=== PATIENT | female | born 1965 | race Caucasian/White ===

== ENCOUNTER 2021-05-14 09:36 | Outpatient (CLI) | payer BC | END 2021-05-14 09:37 | disposition home or self-care (01) | LOC: MRI 09:36 | PROVIDERS: ATTEND Orthopaedic Surgery | DX: M17.11 Unilateral primary osteoarthritis, right knee (principal); S83.241A Other tear of medial meniscus, current injury, right knee, initial encounter; S83.281A Other tear of lateral meniscus, current injury, right knee, initial encounter; M25.461 Effusion, right knee ==

== ENCOUNTER 2021-07-09 10:30 | Inpatient (IN) | payer BC ==
[2021-07-09 14:32] VITALS: BMI 35.8
[2021-07-10 16:53] LABS: #Eosinphils 0.1 10x3/uL (0.0-0.5); #Monocytes 0.7 10x3/uL (0.0-1.1); #Neutrophils 5.1 10x3/uL (1.5-8.4); %Basophils 0.2 % (0.0-2.0); %Eosinophils 1.6 % (0.0-6.0); %Lymphocytes 26.6 % (18.0-47.0); %Neutrophils 63.4 % (40.0-75.0); Hemoglobin 13.9 g/dL (12.0-15.5); Mean Corpuscular HGB CONC 32.3 g/dL (32.0-36.0); Mean Corpuscular Hemoglobin 27.1 pg (27.0-33.0); Platelet Count 328 10x3/uL (150-450); Red Blood Cell (RBC) Count 5.12 10x6/uL (3.90-5.03); White Blood Cell (WBC) Count 8.1 10x3/uL (3.5-10.5)
[2021-07-10 16:53] LABS: Bilirubin Neg (Negative); Blood, Urine Negative (Negative); Clarity Clear (Clear); Glucose, Urine (Dipstick) Normal (Negative); Ketone, Urine Negative (Negative); Leukocyte 25 (Negative); Nitrite Negative (Negative); Protein, Urine (Dipstick) Negative (Neg-Trace); Specific Gravity, Urine 1.015 (1.002-1.036); Urobilinogen Normal mg/dL (Less than 2)
[2021-07-10 17:02] LABS: Bacteria/HPF None Seen HPF (None Seen); Mucous/LPF 2+ LPF (<2+); RBC/HPF 0-3 HPF (0-3); WBC/HPF 0-3 HPF (0-3)
[2021-07-10 17:12] LABS: INR-International Normal Ratio 0.9; Prothrombin Time 10.1 sec (9.5-12.1)
[2021-07-10 17:15] LABS: Anion Gap 13 mmol/L (10-20); BUN (Urea Nitrogen) 11 mg/dL (9.8-20.1); Calc. Creatinine Clearance 0 mL/min (70-130); Calcium 9.4 mg/dL (7.8-10.44); Carbon Dioxide 29 mmol/L (22-29); Chloride 101 mmol/L (98-107); Glucose 95 mg/dL (70-105); Potassium 3.4 mmol/L (3.5-5.1); Sodium 140 mmol/L (136-145)
[2021-07-11 11:53] LABS: SARS-CoV-2 PCR by NAA Not Detected (NotDetected)
[2021-07-14] MEDS ORDERED: Vancomycin HCl 1.5 GM in Sodium Chloride 0.9% 250 ML 300 ML IVPB SCH ×2 (06:00→19:00)
[2021-07-14] MEDS ORDERED: ceFAZolin (BATCH) 2 GM in Premix Bag 1 BAG IVPB SCH (06:00)
[2021-07-14] MEDS ORDERED: Sodium Chloride 0.9% 100 ML ONE (06:21)
[2021-07-14] MEDS ORDERED: Tranexamic Acid 1,000 MG/10 ML VIAL ONE ×2 (06:21→09:33)
[2021-07-14] MEDS ORDERED: fentaNYL Citrate/PF 100 MCG/2 ML SYRINGE ONE (06:35)
[2021-07-14] MEDS ORDERED: Ropivacaine 0.5% HCl/PF (150 MG/30 ML VIAL) ONE (06:40)
[2021-07-14] MEDS ORDERED: Lidocaine 1% (PF) 30 ML VIAL ONE (06:40)
[2021-07-14] MEDS ORDERED: Fentanyl 100 MCG/2 ML VIAL ONE (06:40)
[2021-07-14] MEDS ORDERED: Midazolam HCl 2 mg/2 ml Vial ONE ×2 (06:40→12:10)
[2021-07-14] MEDS ORDERED: Bupivacaine PF 0.5% 30 ML VIAL ONE ×2 (06:52→09:28)
[2021-07-14] MEDS ORDERED: Scopolamine 1.5 mg/72 hour Patch ONE (06:54)
[2021-07-14] MEDS ORDERED: Bupivacaine 0.25% HCL 30 ML VIAL ONE (06:54)
[2021-07-14] MEDS ORDERED: ceFAZolin (BATCH) 2 GM/100 ML BAG ONE (06:54)
[2021-07-14] MEDS ORDERED: Lidocaine 2% Jelly 5 ML TUBE ONE (07:08)
[2021-07-14] MEDS ORDERED: Promethazine HCl 25 MG/ML VIAL IM PRN ×4 (07:18→10:18)
[2021-07-14] MEDS ORDERED: Fentanyl 100 MCG/2 ML VIAL SLOW IVP PRN ×2 (07:18→07:43)
[2021-07-14] MEDS ORDERED: diphenhydrAMINE 25 MG CAP PO PRN ×2 (07:18→10:18)
[2021-07-14] MEDS ORDERED: HYDROcodone/Acetaminophen 10/325 mg Tablet PO PRN ×4 (07:18→07:45)
[2021-07-14] MEDS ORDERED: Acetaminophen 325 MG TAB PO PRN (07:18)
[2021-07-14] MEDS ORDERED: Ondansetron PF 4 MG/2 ML Vial IVP PRN ×3 (07:18→10:18)
[2021-07-14] MEDS ORDERED: Zolpidem Tartrate 5 MG TAB PO PRN ×3 (07:18→10:18)
[2021-07-14] MEDS ORDERED: traMADol HCl 50 MG TAB PO PRN ×3 (07:18→07:45)
[2021-07-14] MEDS ORDERED: Glycopyrrolate 0.2 MG/ML 5 ML SYRINGE ONE (07:22)
[2021-07-14] MEDS ORDERED: Succinylcholine 200 MG/10 ml SYRINGE FS ONE (07:22)
[2021-07-14] MEDS ORDERED: Ketorolac Tromethamine 30 MG/ML VIAL ONE (07:22)
[2021-07-14] MEDS ORDERED: Lidocaine 1% PF 5 ML VIAL ONE (07:22)
[2021-07-14] MEDS ORDERED: Dexamethasone 20 MG/5 ML VIAL ONE (07:22)
[2021-07-14] MEDS ORDERED: PROPOFOL 200 MG/20 ML VIAL ONE (07:22)
[2021-07-14] MEDS ORDERED: Rocuronium Bromide 10 MG/ML (10ML VIAL) ONE (07:22)
[2021-07-14] MEDS ORDERED: Ondansetron PF 4 MG/2 ML Vial ONE (07:22)
[2021-07-14] MEDS ORDERED: Tranexamic Acid 1,000 MG in Sodium Chloride 0.9% 100 ML IVPB SCH (07:30)
[2021-07-14] MEDS ORDERED: Ropivacaine 0.2% 550 ML 550 ML NERVE BLCK SCH (07:45)
[2021-07-14] MEDS ORDERED: Fentanyl 250 MCG/5 ML VIAL ONE (09:12)
[2021-07-14] MEDS ORDERED: Promethazine HCl 25 MG/ML VIAL IVPB PRN (09:14)
[2021-07-14] MEDS ORDERED: Ondansetron HCl/PF 4 MG/2 ML Vial IVP PRN (09:14)
[2021-07-14] MEDS ORDERED: Morphine 4 MG/ML VIAL ONE (09:53)
[2021-07-14] MEDS ORDERED: diphenhydrAMINE 50 MG/ML VIAL IVP PRN (10:18)
[2021-07-14] MEDS ORDERED: Naloxone HCl 0.4 mg/ml Vial IV PRN (10:18)
[2021-07-14] MEDS ORDERED: diphenhydrAMINE 50 MG/ML VIAL IM PRN (10:18)
[2021-07-14] MEDS ORDERED: Morphine CADD 1 MG/ML CADD IVPB PRN (10:18)
[2021-07-14] MEDS ORDERED: Communication Order-Pharmacy FS SCH (10:30)
[2021-07-14] MEDS ORDERED: Morphine Sulfate 100 MG in Dextrose 5% in Water 98 ML IV PRN (10:48)
[2021-07-14] MEDS ORDERED: Acetaminophen 500 MG TAB ONE (11:33)
[2021-07-14] MEDS ORDERED: Acetaminophen 500 MG TAB PO SCH (11:45)
[2021-07-14] MEDS ORDERED: Ketorolac Tromethamine 30 MG/ML VIAL IVP SCH ×2 (12:00→14:00)
[2021-07-14] MEDS: Hydrochlorothiazide 25 MG TAB PO SCH (13:26)
[2021-07-14] MEDS: Multivitamin W/ Minerals 1 TAB PO SCH (13:26)
[2021-07-14] MEDS: Aspirin 81 mg Enteric Coated Tablet PO SCH ×2 (13:26→19:57)
[2021-07-14] MEDS: Ferrous Gluconate 324 MG TAB PO SCH ×2 (13:26→19:39)
[2021-07-14] MEDS: Sodium Chloride 0.9% 1,000 ML IV SCH ×2 (13:26→17:26)
[2021-07-14] MEDS: Senokot S 8.6-50 MG TAB PO SCH ×2 (13:27→19:40)
[2021-07-14] MEDS: ceFAZolin (BATCH) 2 GM in Premix Bag 1 BAG IVPB SCH ×2 (14:39→22:51)
[2021-07-14] MEDS: Ketorolac Tromethamine 30 MG/ML VIAL IVP PRN (15:37)
[2021-07-14] MEDS: Acetaminophen 500 MG TAB PO SCH ×2 (17:26→22:51)
[2021-07-14] MEDS ORDERED: Donepezil HCl 10 MG TAB PO SCH (21:00)
[2021-07-15] MEDS: Acetaminophen 500 MG TAB PO SCH ×2 (05:30→13:10)
[2021-07-15] MEDS: Sodium Chloride 0.9% 1,000 ML IV SCH (05:30)
[2021-07-15 05:57] LABS: Hemoglobin 11.4 g/dL (12.0-16.0); Mean Corpuscular HGB CONC 32.1 g/dL (32.0-36.0); Mean Corpuscular Hemoglobin 27.9 pg (27.0-31.0); Mean Corpuscular Volume 86.9 fL (78.0-98.0); Platelet Count 252 thou/uL (130-400); White Blood Cell (WBC) Count 10.2 thou/uL (4.8-10.8)
[2021-07-15] MEDS: Ketorolac Tromethamine 30 MG/ML VIAL IVP PRN (08:25)
[2021-07-15] MEDS ORDERED: HYDROcodone/Acetaminophen 10/325 mg Tablet PO PRN ×2 (08:26)
[2021-07-15] MEDS: Aspirin 81 mg Enteric Coated Tablet PO SCH (08:42)
[2021-07-15] MEDS: Senokot S 8.6-50 MG TAB PO SCH (08:43)
[2021-07-15] MEDS: Ferrous Gluconate 324 MG TAB PO SCH (08:43)
[2021-07-15] MEDS: Multivitamin W/ Minerals 1 TAB PO SCH (08:43)
[2021-07-15] MEDS ORDERED: Donepezil HCl 10 MG TAB PO SCH (09:00)
[2021-07-15] MEDS: Hydrochlorothiazide 25 MG TAB PO SCH (09:00)
[2021-07-15 11:48] VITALS: BP 125/70; TEMP 97.6
== END 2021-07-15 12:45 | disposition home health service (06) | DRG 470 ==
LOC: SURG A 07-14 05:35 → SJJU 07-14 13:16
PROVIDERS: ADMIT Orthopaedic Surgery; ATTEND Orthopaedic Surgery
PROC: 0SRC0J9 Replacement of Right Knee Joint with Synthetic Substitute, Cemented, Open Approach (ICD-10-PCS; principal; 2021-07-14)
PROC: 8E0YXBZ Computer Assisted Procedure of Lower Extremity (ICD-10-PCS; 2021-07-14)
DX: M17.11 Unilateral primary osteoarthritis, right knee (principal); Z20.822 Contact with and (suspected) exposure to COVID-19; M19.90 Unspecified osteoarthritis, unspecified site; J45.909 Unspecified asthma, uncomplicated; G43.909 Migraine, unspecified, not intractable, without status migrainosus; I10 Essential (primary) hypertension; M81.0 Age-related osteoporosis without current pathological fracture; M79.7 Fibromyalgia; M65.9 Synovitis and tenosynovitis, unspecified; Z80.9 Family history of malignant neoplasm, unspecified; Z80.8 Family history of malignant neoplasm of other organs or systems; Z82.49 Family history of ischemic heart disease and other diseases of the circulatory system; Z87.891 Personal history of nicotine dependence; Z79.899 Other long term (current) drug therapy
CPT/HCPCS: 36415; 80048; 81001; 85025; 85027; 85610; 86850; 86900; 86901; 87081; A4306; C1713; C1776; J0690; J1100; J1885; J2001; J2250; J2270; J2405; J2704; J2795; J3010; J3370; J3490; J7050; S0020; U0003; U0005

== ENCOUNTER 2021-07-10 15:57 | Outpatient (CLI) | payer BC ==
[2021-07-10 16:53] LABS: #Eosinphils 0.1 10x3/uL (0.0-0.5); #Monocytes 0.7 10x3/uL (0.0-1.1); #Neutrophils 5.1 10x3/uL (1.5-8.4); %Basophils 0.2 % (0.0-2.0); %Eosinophils 1.6 % (0.0-6.0); %Lymphocytes 26.6 % (18.0-47.0); %Neutrophils 63.4 % (40.0-75.0); Hemoglobin 13.9 g/dL (12.0-15.5); Mean Corpuscular HGB CONC 32.3 g/dL (32.0-36.0); Mean Corpuscular Hemoglobin 27.1 pg (27.0-33.0); Platelet Count 328 10x3/uL (150-450); Red Blood Cell (RBC) Count 5.12 10x6/uL (3.90-5.03); White Blood Cell (WBC) Count 8.1 10x3/uL (3.5-10.5)
[2021-07-10 16:53] LABS: Bilirubin Neg (Negative); Blood, Urine Negative (Negative); Clarity Clear (Clear); Glucose, Urine (Dipstick) Normal (Negative); Ketone, Urine Negative (Negative); Leukocyte 25 (Negative); Nitrite Negative (Negative); Protein, Urine (Dipstick) Negative (Neg-Trace); Specific Gravity, Urine 1.015 (1.002-1.036); Urobilinogen Normal mg/dL (Less than 2)
[2021-07-10 17:02] LABS: Bacteria/HPF None Seen HPF (None Seen); Mucous/LPF 2+ LPF (<2+); RBC/HPF 0-3 HPF (0-3); WBC/HPF 0-3 HPF (0-3)
[2021-07-10 17:12] LABS: INR-International Normal Ratio 0.9; Prothrombin Time 10.1 sec (9.5-12.1)
[2021-07-10 17:15] LABS: Anion Gap 13 mmol/L (10-20); BUN (Urea Nitrogen) 11 mg/dL (9.8-20.1); Calc. Creatinine Clearance 0 mL/min (70-130); Calcium 9.4 mg/dL (7.8-10.44); Carbon Dioxide 29 mmol/L (22-29); Chloride 101 mmol/L (98-107); Glucose 95 mg/dL (70-105); Potassium 3.4 mmol/L (3.5-5.1); Sodium 140 mmol/L (136-145)
[2021-07-11 11:53] LABS: SARS-CoV-2 PCR by NAA Not Detected (NotDetected)
== END 2021-07-10 15:58 | disposition home or self-care (01) ==
LOC: LABBT 15:57
PROVIDERS: ATTEND Orthopaedic Surgery
DX: Z01.818 Encounter for other preprocedural examination (principal); M17.11 Unilateral primary osteoarthritis, right knee; Z20.822 Contact with and (suspected) exposure to COVID-19
CPT/HCPCS: 71046; 80048; 81001; 85025; 85610; 86850; 86900; 86901; 87081; 93005; 93010; U0003; U0005